=== PATIENT | female | born 1995 | race Caucasian/White ===

== ENCOUNTER 2016-06-18 14:45 | Emergency (ER) | payer OTHER ==
[2016-06-18] MEDS ORDERED: NS 0.9% 1000 ML* 1,000 ML BOLUS ONE (15:09)
[2016-06-18] MEDS ORDERED: Famotidine IV* 10 MG/ML 2 ML (20 mg) IV SLOW PU ONE (15:09)
--- NOTE | 2016-06-18 15:09 | UC ---
Abdominal Pain Female HPI - HPI Summary HPI Summary: 20 yo female with epigastric pain which started yesterday AM This was follow by 3 episodes of vomiting She later developed a temp to 102 Today no fever or nausea/vomiting Able to take liquids but it goes straight through her has had 4-6 episodes of water diarrhea epigastric pain continues no blood in vomit or stool no UTI symptoms has take care of pts with c. diff - History of Current Complaint Chief Complaint: UCAbdominalPain Stated Complaint: ABDOMINAL PAIN Time Seen by Provider: 06/18/16 15:00 Hx Obtained From: Patient Hx Last Menstrual Period: 06/06/16 Onset/Duration: Gradual Onset, Lasting Days Timing: Constant Severity Initially: Moderate Severity Currently: Moderate Pain Intensity: 4 Pain Scale Used: 0-10 Numeric Location: Epigastric Radiates: No Character: Cramping Aggravating Factor(s): Food Alleviating Factor(s): Nothing Associated Signs and Symptoms: Positive: Fever, Decreased Appetite, Nausea - non today, Vomiting - none today. Negative: Diaphoresis, Cough, Chest Pain, Dizzy, Back Pain, Constipation, Blood in Stool, Urinary Symptoms, Vaginal Bleeding, Vaginal Discharge Allergies/Adverse Reactions: Allergies Allergy/AdvReac Type Severity Reaction Status Date / Time Pineapple Allergy Severe Itching Verified 06/18/16 14:50 cats Allergy Severe Eyes Uncoded 06/18/16 14:50 Itchy/Swollen/Red/Watery Home Medications: Home Medications Albuterol HFA INHALER* [Ventolin HFA Inhaler*] 2 puff INH Q6H PRN 06/18/16 [ History Confirmed 06/18/16] Levonorgestrel (Iud) [Mirena IUD] 06/18/16 [History] PMH/Surg Hx/FS Hx/Imm Hx Previously Healthy: Yes - IBS Endocrine History Of: Denies: Diabetes, Thyroid Disease Cardiovascular History Of: Denies: Cardiac Disorders, Hypertension Respiratory History Of: Reports: Asthma - exercise-induced Denies: COPD GI/ History Of: Denies: Ulcer Psychological History Of: Reports: Anxiety - Surgical History Surgical History: Yes Surgery Procedure, Year, and Place: tonsils 02/20, adenoids in 04/19, wisdom teeth 02/21 - Family History Known Family History: Positive: Cardiac Disease, Hypertension - Social History Alcohol Use: None Substance Use Type: None Smoking Status (MU): Never Smoked Tobacco - Immunization History Most Recent Influenza Vaccination: 2016 Most Recent Tetanus Shot: UTD Most Recent Pneumonia Vaccination: N/A Review of Systems Constitutional: Fever - non today Skin: Negative Eyes: Negative ENT: Negative Respiratory: Negative Cardiovascular: Negative Gastrointestinal: Abdominal Pain, Vomiting - none today, Diarrhea Genitourinary: Negative Motor: Negative Neurovascular: Negative Musculoskeletal: Negative Neurological: Negative Psychological: Negative All Other Systems Reviewed And Are Negative: Yes Physical Exam Triage Information Reviewed: Yes Appearance: Well-Appearing, No Pain Distress, Well-Nourished Vital Signs: Initial Vital Signs Temp 97.7 F 06/18/16 14:53 Pulse 111 06/18/16 14:53 Resp 18 06/18/16 14:53 BP 131/88 06/18/16 14:53 Pulse Ox 99 06/18/16 14:53 Vital Signs Reviewed: Yes Eyes: Positive: Conjunctiva Clear ENT: Positive: Normal ENT inspection, Hearing grossly normal Dental Exam: Normal Neck: Positive: Supple, Nontender, No Lymphadenopathy Respiratory: Positive: Lungs clear, Normal breath sounds, No respiratory distress Cardiovascular: Positive: RRR, No Murmur, Pulses Normal Abdomen Description: Positive: Soft. Negative: Nontender - tender diffusely...worse epigastrium, Bruit, CVA Tenderness (L), Distended, Guarding, Hernia @, Hepatomegaly, McBurney's Point Tenderness, Peritoneal Signs, Pulsatile Mass, Splenomegaly Musculoskeletal: Positive: ROM Intact, No Edema Neurological: Positive: Alert Psychological Exam: Normal Skin Exam: Normal Re-Evaluation - Re-Evaluation First Eval Re-Evaluation Time: 16:42 Change: Improved - feels improved/decreased pain/no nausea/no diarrhea here declines analgesic Abd Pain Female Course/Dx - Differential Dx/Diagnosis Provider Diagnoses: gastroenteritis Discharge - Discharge Plan Condition: Improved Disposition: HOME Prescriptions: Ondansetron TAB* [Zofran 4 MG Tab*] 4 mg PO Q6H PRN #6 tab PRN Reason: Nausea Patient Education Materials: Gastroenteritis (ED) Referrals: Elva Srinivasan NP [Primary Care Provider] - 2 Days Additional Instructions: recheck here or go to the ER for new or worsening symptoms rest fluids tylenol zofran if needed for nausea
[2016-06-18 16:41] VITALS: BP 112/77
== END 2016-06-18 16:50 | disposition home or self-care (01) ==
LOC: UCEAST 14:45
DX: K52.9 Noninfective gastroenteritis and colitis, unspecified (principal); J45.990 Exercise induced bronchospasm
CPT/HCPCS: 81003; 87045; 87046; 87077; 87328; 87329; 87493; 87899; 99212; G0463

== ENCOUNTER 2016-06-19 15:22 | Emergency (ER) | payer OTHER ==
[2016-06-19 15:45] VITALS: BP 121/75
--- NOTE | 2016-06-19 18:08 | UC ---
Janet Red Michael, scribed for Aide Hernandez MD on 06/19/16 at 1628 . Abdominal Pain Female HPI - HPI Summary HPI Summary: 20 y/o female comes to [facility] after being dx with gastroenteritis on 06/18/16. She presented with n/v and a temperature of 102 which started 2 days ago. Currently , the pt reports to cramping abd pain and watery diarrhea with increasing frequency. The abd pain is rated a 7 out of 10 pain assessment. She also c/o dizziness, FORDE, nausea, and diaphoresis which started today. She took Ibuprofen today which alleviated her FORDE and not the abd pain. The pt is afebrile today. The pt dropped off a stool kit and c-diff is negative. Her LNMP was on 05/30/16. - History of Current Complaint Chief Complaint: UCGI Stated Complaint: ABD PAIN,DIZZY Hx Obtained From: Patient, Medical Records Hx Last Menstrual Period: 05/30/16 Onset/Duration: Gradual Onset, Still Present Timing: Intermittent Episodes Lasting: Severity Initially: Moderate Severity Currently: Moderate Pain Intensity: 7 Pain Scale Used: 0-10 Numeric Location: Diffuse Radiates: No Character: Cramping Aggravating Factor(s): Nothing Alleviating Factor(s): Nothing Associated Signs and Symptoms: Positive: Diaphoresis, Dizzy, Decreased Appetite , Nausea, Diarrhea, Other: - abd pain. Negative: Fever, Urinary Symptoms Allergies/Adverse Reactions: Allergies Allergy/AdvReac Type Severity Reaction Status Date / Time Pineapple Allergy Severe Itching Verified 06/19/16 17:13 cats Allergy Severe Eyes Uncoded 06/19/16 17:13 Itchy/Swollen/Red/Watery PMH/Surg Hx/FS Hx/Imm Hx Endocrine History Of: Denies: Diabetes, Thyroid Disease Cardiovascular History Of: Denies: Cardiac Disorders, Hypertension Respiratory History Of: Reports: Asthma - exercise-induced Denies: COPD GI/ History Of: Denies: Ulcer Psychological History Of: Reports: Anxiety - Surgical History Surgical History: Yes Surgery Procedure, Year, and Place: tonsils 02/20, adenoids in 04/19, wisdom teeth 02/21 - Family History Known Family History: Positive: Cardiac Disease, Hypertension - Social History Occupation: Student Lives: With Family Alcohol Use: None Substance Use Type: None Smoking Status (MU): Never Smoked Tobacco - Immunization History Most Recent Influenza Vaccination: 2016 Most Recent Tetanus Shot: UTD Most Recent Pneumonia Vaccination: N/A Review of Systems Constitutional: Fever - a few days ago, Other - diaphoresis ENT: Negative Respiratory: Negative Cardiovascular: Negative Gastrointestinal: Abdominal Pain, Diarrhea, Other - nausea Musculoskeletal: Myalgia Neurological: Headache, Other - dizziness All Other Systems Reviewed And Are Negative: Yes Physical Exam Triage Information Reviewed: Yes Appearance: Well-Nourished, Ill-Appearing, Pain Distress Vital Signs: Initial Vital Signs Temp 98.5 F 06/19/16 15:40 Pulse 104 06/19/16 15:40 Resp 16 06/19/16 15:40 BP 121/75 06/19/16 15:40 Pulse Ox 99 06/19/16 15:40 tachycardia noted Vital Signs Reviewed: Yes Eyes: Positive: Conjunctiva Clear ENT Exam: Normal Neck: Positive: Supple, Nontender, No Lymphadenopathy Respiratory: Positive: Lungs clear, Normal breath sounds, No respiratory distress Cardiovascular: Positive: No Murmur, Pulses Normal, Brisk Capillary Refill, Tachycardia Abdomen Description: Positive: No Organomegaly, Soft. Negative: Nontender - diffuse tenderness, CVA Tenderness (R), CVA Tenderness (L), Distended, Guarding , McBurney's Point Tenderness, Peritoneal Signs, Splenomegaly Bowel Sounds: Positive: Hyperactive Musculoskeletal: Positive: Strength Intact, ROM Intact Neurological Exam: Normal Psychological Exam: Normal Skin Exam: Normal Abd Pain Female Course/Dx - Course Course Of Treatment: Discussed pt care with Dr. Stephens at 1647. The pt will be tranferred to [facility] by private car for further evaluation, and she is accepted by Dr. Stephens. Pt continues to worsen, despite IV hydration yesterday, and has not eaten for 3 days. Needs higher level of care. - Differential Dx/Diagnosis Differential Diagnosis: Appendicitis, Bowel Obstruction, Diverticulitis, Hepatitis, Irritable Bowel Syndrome, Pancreatitis, Other - infectious colitis Provider Diagnoses: abdominal pain. diarrhea Discharge - Discharge Plan Condition: Stable Disposition: AGAINST MEDICAL ADVICE Referrals: Elva Srinivasan NP [Primary Care Provider] - The documentation as recorded by the Janet evangelista Michael accurately reflects the service I personally performed and the decisions made by , Aide Hernandez MD.
== END 2016-06-19 16:53 | disposition left against medical advice (07) ==
LOC: UCEAST 15:22
DX: R10.9 Unspecified abdominal pain (principal); R19.7 Diarrhea, unspecified; Z91.018 Allergy to other foods; Z91.09 Other allergy status, other than to drugs and biological substances
CPT/HCPCS: 99212; G0463

== ENCOUNTER 2016-06-19 17:11 | Emergency (ER) | payer OTHER ==
[2016-06-19] MEDS ORDERED: Ondansetron INJ* 2 MG/ML VIAL IV ONE ×2 (17:17→18:03)
[2016-06-19] MEDS ORDERED: Morphine INJ* 4 MG/ML 1 ML SYRINGE IV ONE ×2 (17:17→18:03)
[2016-06-19] MEDS ORDERED: NS 0.9% 1000 ML* 1,000 ML IV ONE ×3 (17:17→20:37)
[2016-06-19 18:24] LABS: Hematocrit 43 % (35-47); Hemoglobin 14.7 g/dl (12.0-16.0); Mean Corpuscular HGB Conc 34 g/dl (31-36); Mean Corpuscular Hemoglobin 28 pg (27-31); Mean Corpuscular Volume 83 fL (80-97); Mean Platelet Volume 9 um3 (7.4-10.4); Red Blood Count 5.21 10^6/ul (4.0-5.4); Red Cell Distribution Width 13 % (10.5-15); White Blood Count 6.8 10^3/ul (3.5-10.8)
[2016-06-19 18:34] LABS: Urine Bacteria 1+ (Absent); Urine Bilirubin Negative (Negative); Urine Glucose Negative (Negative); Urine Nitrite Negative (Negative)
[2016-06-19 18:39] LABS: ALT 47 U/L (7-52); Albumin 4.6 g/dL (3.2-5.2); Alkaline Phosphatase 77 U/L (34-104); BUN/Creatinine Ratio 7.2 (8-20); Blood Urea Nitrogen 5 mg/dL (6-24); C Reactive Protein 57.85 mg/L (< 5.00); CO2 Carbon Dioxide 25 mmol/L (22-32); Calcium 9.2 mg/dL (8.6-10.3); Chloride 105 mmol/L (101-111); EGFR African American 136.8 (>60); EGFR Non-African American 106.4 (>60); Globulin 3.3 g/dL (2-4); Glucose 92 mg/dL (70-100); Lipase < 10 U/L (11.0-82.0); Sodium 137 mmol/L (133-145); Total Protein 7.9 g/dL (6.4-8.9)
[2016-06-19 20:24] LABS: Magnesium 1.9 mg/dL (1.9-2.7)
[2016-06-19] MEDS ORDERED: Ondansetron ODT TAB* 4 MG PO ONE (20:39)
[2016-06-19] MEDS ORDERED: oxyCODONE/Acetamin 5/325 MG* TAB PO ONE (20:39)
[2016-06-19] MEDS ORDERED: Azithromycin TAB* 250 MG PO ONE (20:39)
[2016-06-19 21:15] VITALS: BP 102/58
--- NOTE | 2016-08-03 23:30 | ED ---
Neda, DoctorMiriam, scribed for Aide Hernandez MD on 06/19/16 at 1809 . GI/ HPI <AngeloHannah - Last Filed: 07/05/16 11:25> - HPI Summary HPI Summary: 20 year old female arrived to [facility] [place] [facility]/D and abdominal pain for the past two days. She woke up two days ago with stomach pain and was overcome with nausea; vomited twice. Pt has not vomited since but has had regular cramping in the middle of her abdomen and constant diarrhea. She reports a fever of 102 two days ago, and 99 yesterday. Additionally, she reports potential c. diff exposure. She does not smoke or drink and has a PMHx of generalized anxiety disorder, IBS, panic disorder, and exercise induced asthma. - History of Current Complaint Hx Obtained From: Patient Onset/Duration: Started Days Ago - 2 days ago, Still Present, Resolved - vomiting resolved Timing: Lasting Days Severity: Moderate Current Severity: Moderate Pain Intensity: 7 - on 0-10 Numerical Scale Location of Pain: Diffuse Associated Signs and Symptoms: Positive: Nausea, Vomiting, Diarrhea, Abdominal Pain Alleviating Factor(s): Spontaneous Resolution - vomiting resolved spontaneously <Aide Hernandez - Last Filed: 08/03/16 23:30> - History of Current Complaint Chief Complaint: EDNauseaVomitDiarrh Time Seen by Provider: 06/19/16 17:23 Stated Complaint: SENT FROM [facility]-ABD PAIN,DIARRHEA - Allergy/Home Medications Allergies/Adverse Reactions: Allergies Allergy/AdvReac Type Severity Reaction Status Date / Time Pineapple Allergy Severe Itching Verified 06/19/16 17:13 cats Allergy Severe Eyes Uncoded 06/19/16 17:13 Itchy/Swollen/Red/Watery PMH/Surg Hx/FS Hx/Imm Hx Endocrine/Hematology History: Denies: Hx Diabetes, Hx Thyroid Disease Cardiovascular History: Denies: Hx Hypertension Respiratory History: Reports: Hx Asthma - exercise-induced Denies: Hx Chronic Obstructive Pulmonary Disease (COPD) GI History: Denies: Hx Ulcer Psychiatric History: Reports: Hx Anxiety, Hx Panic Disorder - Surgical History Surgery Procedure, Year, and Place: tonsils 02/20, adenoids in 04/19, wisdom teeth 02/21 Infectious Disease History: No Infectious Disease History: Denies: Hx Clostridium Difficile, Hx Hepatitis, Hx Human Immunodeficiency Virus (HIV), Hx of Known/Suspected MRSA, Hx Shingles, Hx Tuberculosis, Hx Known/ Suspected VRE, Hx Known/Suspected VRSA, History Other Infectious Disease, Traveled Outside the [place] in Last 30 Days - Family History Known Family History: Positive: Cardiac Disease, Hypertension, Diabetes - Social History Occupation: Student Lives: With Family - with partner Alcohol Use: None Substance Use Type: Reports: None Smoking Status (MU): Never Smoked Tobacco <Aide Hernandez - Last Filed: 08/03/16 23:30> Review of Systems Negative: Fever - fever of 102 two days ago, now resolved Positive: Abdominal Pain, Vomiting, Diarrhea, Nausea All Other Systems Reviewed And Are Negative: Yes <Aide Hernandez - Last Filed: 08/03/16 23:30> Physical Exam Vital Signs On Initial Exam: Initial Vitals Temp Pulse Resp BP Pulse Ox 97.3 F 98 16 124/74 100 06/19/16 17:13 06/19/16 17:13 06/19/16 17:13 06/19/16 17:13 06/19/16 17:13 <Hannah Stephens - Last Filed: 07/05/16 11:25> Triage Information Reviewed: Yes Vital Signs On Initial Exam: Initial Vitals Temp Pulse Resp BP Pulse Ox 97.3 F 98 16 124/74 100 06/19/16 17:13 06/19/16 17:13 06/19/16 17:13 06/19/16 17:13 06/19/16 17:13 Vital Signs Reviewed: Yes Appearance: Positive: Well-Appearing, No Pain Distress Skin: Positive: Warm, Skin Color Reflects Adequate Perfusion, Dry Eyes: Positive: EOMI, MARCELA ENT: Positive: Pharynx normal, TMs normal Neck: Positive: Supple, Nontender Respiratory/Lung Sounds: Positive: Clear to Auscultation, Breath Sounds Present. Negative: Rales, Rhonchi, Wheezes Cardiovascular: Positive: RRR. Negative: Murmur, Rub Abdomen Description: Negative: Nontender - mid-abdominal tenderness Musculoskeletal: Positive: Normal. Negative: Edema Left, Edema Right Neurological: Positive: Sensory/Motor Intact, Alert, Oriented to Person Place, Time, CN Intact II-III Psychiatric: Positive: Normal, Affect/Mood Appropriate <Aide Hernandez - Last Filed: 08/03/16 23:30> Diagnostics - Vital Signs Vital Signs Temp Pulse Resp BP Pulse Ox 06/19/16 21:13 98.2 F 79 16 102/58 06/19/16 20:06 78 111/65 98 06/19/16 20:00 75 98 06/19/16 19:30 74 103/59 100 06/19/16 19:00 75 96/58 99 06/19/16 18:30 79 105/65 97 06/19/16 18:17 84 97 06/19/16 18:14 110/66 06/19/16 18:12 16 06/19/16 17:13 97.3 F 98 16 124/74 100 - Laboratory Lab Results: Lab Results 06/19/16 06/19/16 06/19/16 Range/Units 18:10 18:10 18:10 WBC 6.8 (3.5-10.8) 10^3/ul RBC 5.21 (4.0-5.4) 10^6/ul Hgb 14.7 (12.0-16.0) g/dl Hct 43 (35-47) % MCV 83 (80-97) fL MCH 28 (27-31) pg MCHC 34 (31-36) g/dl RDW 13 (10.5-15) % Plt Count 235 (150-450) 10^3/ul MPV 9 (7.4-10.4) um3 Neut % (Auto) 65.7 (38-83) % Lymph % (Auto) 23.0 L (25-47) % [place] % (Auto) 8.7 (1-9) % Eos % (Auto) 2.1 (0-6) % Baso % (Auto) 0.5 (0-2) % Absolute Neuts (auto) 4.5 (1.5-7.7) 10^3/ul Absolute Lymphs (auto) 1.6 (1.0-4.8) 10^3/ul Absolute Monos (auto) 0.6 (0-0.8) 10^3/ul Absolute Eos (auto) 0.1 (0-0.6) 10^3/ul Absolute Basos (auto) 0 (0-0.2) 10^3/ul Absolute Nucleated RBC 0.01 10^3/ul Nucleated RBC % 0.1 Sodium 137 (133-145) mmol/L Potassium TNP Chloride 105 (101-111) mmol/L Carbon Dioxide 25 (22-32) mmol/L Anion Gap TNP BUN 5 L (6-24) mg/dL Creatinine 0.69 (0.51-0.95) mg/dL Est GFR ( Amer) 136.8 (>60) Est GFR (Non-Af Amer) 106.4 (>60) BUN/Creatinine Ratio 7.2 L (8-20) Glucose 92 (70-100) mg/dL Calcium 9.2 (8.6-10.3) mg/dL Magnesium (1.9-2.7) mg/dL Total Bilirubin 0.60 (0.2-1.0) mg/dL AST TNP ALT 47 (7-52) U/L Alkaline Phosphatase 77 (34-104) U/L C-Reactive Protein 57.85 H (< 5.00) mg/L Total Protein 7.9 (6.4-8.9) g/dL Albumin 4.6 (3.2-5.2) g/dL Globulin 3.3 (2-4) g/dL Albumin/Globulin Ratio 1.4 (1-3) Lipase < 10 L (11.0-82.0) U/L Urine Color Yellow Urine Appearance Clear Urine pH 6.0 (5-9) Ur Specific [place] 1.005 L (1.010-1.030) Urine Protein Negative (Negative) Urine Ketones Negative (Negative) Urine Blood 1+ H (Negative) Urine Nitrate Negative (Negative) Urine Bilirubin Negative (Negative) Urine Urobilinogen Negative (Negative) Ur Leukocyte Esterase Negative (Negative) Urine WBC (Auto) Trace(0-5/hpf) (Absent) Urine RBC (Auto) Trace(0-2/hpf) (Absent) Ur Squamous Epith Cells Present H (Absent) Urine Bacteria 1+ H (Absent) Urine Glucose Negative (Negative) 06/19/16 Range/Units 19:55 WBC (3.5-10.8) 10^3/ul RBC (4.0-5.4) 10^6/ul Hgb (12.0-16.0) g/dl Hct (35-47) % MCV (80-97) fL MCH (27-31) pg MCHC (31-36) g/dl RDW (10.5-15) % Plt Count (150-450) 10^3/ul MPV (7.4-10.4) um3 Neut % (Auto) (38-83) % Lymph % (Auto) (25-47) % [place] % (Auto) (1-9) % Eos % (Auto) (0-6) % Baso % (Auto) (0-2) % Absolute Neuts (auto) (1.5-7.7) 10^3/ul Absolute Lymphs (auto) (1.0-4.8) 10^3/ul Absolute Monos (auto) (0-0.8) 10^3/ul Absolute Eos (auto) (0-0.6) 10^3/ul Absolute Basos (auto) (0-0.2) 10^3/ul Absolute Nucleated RBC 10^3/ul Nucleated RBC % Sodium (133-145) mmol/L Potassium 3.5 Chloride (101-111) mmol/L Carbon Dioxide (22-32) mmol/L Anion Gap BUN (6-24) mg/dL Creatinine (0.51-0.95) mg/dL Est GFR ( Amer) (>60) Est GFR (Non-Af Amer) (>60) BUN/Creatinine Ratio (8-20) Glucose (70-100) mg/dL Calcium (8.6-10.3) mg/dL Magnesium 1.9 (1.9-2.7) mg/dL Total Bilirubin (0.2-1.0) mg/dL AST 35 ALT (7-52) U/L Alkaline Phosphatase (34-104) U/L C-Reactive Protein (< 5.00) mg/L Total Protein (6.4-8.9) g/dL Albumin (3.2-5.2) g/dL Globulin (2-4) g/dL Albumin/Globulin Ratio (1-3) Lipase (11.0-82.0) U/L Urine Color Urine Appearance Urine pH (5-9) Ur Specific [place] (1.010-1.030) Urine Protein (Negative) Urine Ketones (Negative) Urine Blood (Negative) Urine Nitrate (Negative) Urine Bilirubin (Negative) Urine Urobilinogen (Negative) Ur Leukocyte Esterase (Negative) Urine WBC (Auto) (Absent) Urine RBC (Auto) (Absent) Ur Squamous Epith Cells (Absent) Urine Bacteria (Absent) Urine Glucose (Negative) Result Diagrams: 06/19/16 18:10 06/19/16 19:55 Lab Statement: Any lab studies that have been ordered have been reviewed, and results considered in the medical decision making process. <Hannah Stephens - Last Filed: 07/05/16 11:25> - Vital Signs Vital Signs Temp Pulse Resp BP Pulse Ox 06/19/16 17:13 97.3 F 98 16 124/74 100 - Laboratory Result Diagrams: 06/19/16 18:10 06/19/16 19:55 Lab Statement: Any lab studies that have been ordered have been reviewed, and results considered in the medical decision making process. <Aide Hernandez - Last Filed: 08/03/16 23:30> GIGU Course/Dx - Course Course Of Treatment: 21 yo male with diarrhea and fever started on empiric abx labs look good <Hannah Stephens - Last Filed: 07/05/16 11:25> <Aide Hernandez - Last Filed: 08/03/16 23:30> - Diagnoses Provider Diagnoses: Diarrhea Discharge <Hannah Stephens - Last Filed: 07/05/16 11:25> <Aide Hernandez - Last Filed: 08/03/16 23:30> - Discharge Plan Condition: Stable Disposition: HOME Prescriptions: Azithromycin [Azithromycin 500 MG TAB] 500 mg PO DAILY #2 tab Ondansetron TAB* [Zofran 4 MG Tab*] 4 mg PO Q6H PRN #10 tab PRN Reason: Nausea oxyCODONE/Acetamin 5/325 MG* [Percocet 5/325 TAB*] 1 tab PO Q8H PRN #7 tab MDD 3 PRN Reason: Pain Patient Education Materials: Acute Diarrhea (ED) Referrals: Elva Srinivasan NP [Primary Care Provider] - The documentation as recorded by the Doctor evangelista Tahera accurately reflects the service I personally performed and the decisions made by David olson Barbara J, MD.
== END 2016-06-19 21:13 | disposition home or self-care (01) ==
LOC: ED 17:11
DX: R19.7 Diarrhea, unspecified (principal); R10.9 Unspecified abdominal pain; R11.2 Nausea with vomiting, unspecified
CPT/HCPCS: 36415; 80053; 81003; 81015; 83690; 83735; 85025; 86140; 87086; 96374; 96375; 99283; A9270-GY; J2270; J2405

== ENCOUNTER 2018-05-09 12:53 | Emergency (ER) | payer OTHER ==
--- OUTSIDE RECORDS SUMMARY | 2018-05-09 13:00 | XMS REPORT | Continuity of Care Document ---
:1995 External Reference #:[id number] Author Name Nenita Potter Care Team Providers Name Role Phone Sherita Reeves MD Primary Care Physician Unavailable Payers Date Identification Numbers Payment Provider Subscriber Effective: 2013 Policy Number: [id number] [employer] Matias Lockett Group Number: [id number] [address] PayID: [id number] [place] [address] Advance Directives Description No Information Available Problems Date Description Provider Status Onset: 07/12/2013 Mixed hyperlipidemia Sarahy Stringer M.D. Active Onset: 07/12/2013 Obesity Sarahy Stringer M.D. Active Onset: 07/12/2013 Vitamin D deficiency Sarahy Stringer M.D. Active Onset: 07/12/2013 Chondromalacia of patella Chance Oconnor M.D. Active Onset: 07/12/2013 Patellar tendonitis Chance Oconnor M.D. Active Onset: 07/12/2013 Sensorineural hearing loss Anton Pelayo M.D. Active Onset: 07/12/2013 Chronic tonsillitis Anton Pelayo M.D. Active Onset: 07/20/2017 Obstructive sleep apnea syndrome Shelly Grayson DNP, RN, Active [employer] Onset: 07/20/2017 Hypersomnia Shelly Grayson DNP, RN, Active [employer] Onset: 07/20/2017 Body mass index 30+ - obesity Shelly Grayson DNP RN, Active [employer] Family History Date Family Member(s) Observation Comments General Cancer, Pancreatic General Cancer, Breast General Diabetes, Non Insulin Dependent General Thyroid Disease General Hypertension Father Hypertension Mother Chronic Hepatitis B Siblings 1 Sister: cardiac history showed one of her ventricles too small-murmur was present but no longer Social History Type Date Description Comments Sex Unknown Marital Status Significant Other Lives With Fiance Lives With Mother And Father Smoke-Free Home is smoke-free Pets 2 dogs Pets 2 cats Pets Cow Pets Goat Pets chicken 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[employer] [place] Tobacco Use Start: Unknown Never Smoked Cigarettes Tobacco Use Start: Unknown Never Smoked A Pipe Smokeless Tobacco Never Used Smokeless Tobacco ETOH Use Denies alcohol use Tobacco Use Start: Unknown Patient has never smoked Recreational Drug Use Denies Drug Use Smoking Status Reviewed: 04/18/18 Patient has never smoked Exercise Type/Frequency Exercises sporadically Allergies, Adverse Reactions, Alerts Date Description Reaction Status Severity Comments 02/10/2017 NKDA Active 02/10/2017 Cat Dander Active 02/10/2017 Pineapple Active 08/07/2009 NKDA Inactive Medications Medication Date Status Form Strength Qnty SIG Indications Ordering Provider Zoloft / Active 150mg qd Unknown 0000 Zyrtec / Active 10mg qd Unknown 0000 Multivitamins / Active 1 qd Unknown 0000 Proair HFA / Active Aerosol 108(90Base 1units 2 puffs by Unknown 0000 ) mcg/Act mouth every 4 hours as needed Fish Oil / Active Capsules 1200mg 1 by mouth Unknown Burp-Less 0000 every day Vitamin D-3 / Active Tablets 5000Unit 8tabs 1 by mouth Unknown 0000 every day Mirena (52 MG) / Active IUD 20mcg/24HR Unknown 0000 Lorazepam / Active Tablets 1mg prn Unknown 0000 Nguyen Colon / Active Capsules 1 by mouth Unknown Health 0000 every day Lortab 02/22/ Hx Elixir 7.5-500mg/ 450ml 1 Anton 2010 - 15ML tablespoon Pierce, 10/17/ (15 ml) by Ann 2011 mouth every 4-6 hours as needed for pain Clindamycin HCL 01/25/ Hx Capsules 300mg 63caps 1 tab po Anton 2010 - tid for 21 Pierce, 10/17/ days M.DLima 2011 Augmentin 01/04/ Hx Tablets 875-125mg 20tabs 1 tab by Anton 2010 - mouth twice Pierce, 12/13/ a day for M.D. 2010 10 days Medrol Dosepak 01/04/ Hx Tablets 4mg 1pack take as Anton 2010 - directed Pierce, 02/22/ M.D. 2010 Valium 00/ Hx 5mg prn Unknown 0000 - 2016 Norgestimate/Et 00/ Hx Tablets 0.25-35mg- 30tabs 1 by mouth Unknown hinyl Estradiol 0000 - mcg every day 2016 Immunizations Description No Information Available Vital Signs Date Vital Result Comment 04/18/2018 9:05am Height 63.5 inches 5'3.50" Weight 187.25 lb Heart Rate 72 /min BP Systolic Sitting 110 mmHg Lue regular cuff BP Diastolic Sitting 74 mmHg Lue regular cuff Respiratory Rate 12 /min O2 % BldC Oximetry 98 % BMI (Body Mass Index) 32.6 kg/m2 10/16/2017 9:42am Height 63.5 inches 5'3.50" Weight 188.00 lb Heart Rate 72 /min BP Systolic Sitting 110 mmHg BP Diastolic Sitting 84 mmHg Respiratory Rate 14 /min O2 % BldC Oximetry 98 % BMI (Body Mass Index) 32.8 kg/m2 07/20/2017 9:50am Height 63.5 inches 5'3.50" Weight 190.00 lb Heart Rate 90 /min BP Systolic Sitting 134 mmHg Rue reg cuff BP Diastolic Sitting 90 mmHg Rue reg cuff Respiratory Rate 14 /min O2 % BldC Oximetry 98 % On Ra BMI (Body Mass Index) 33.1 kg/m2 06/15/2017 7:58am Height 63.5 inches 5'3.50" Weight 195.00 lb Heart Rate 76 /min BP Systolic Sitting 122 mmHg BP Diastolic Sitting 72 mmHg Respiratory Rate 14 /min O2 % BldC Oximetry 98 % BMI (Body Mass Index) 34.0 kg/m2 Neck Circumference in inches 13.5 05/15/2017 11:37am Height 63.5 inches 5'3.50" Weight 194.75 lb w/shoes Heart Rate 80 /min BP Systolic Sitting 112 mmHg LA lg cuff BP Diastolic Sitting 76 mmHg LA lg cuff BMI (Body Mass Index) 34.0 kg/m2 Ejection Fraction 55% Stress Echo 03/21/17 02/10/2017 1:11pm Height 63.5 inches 5'3.50" Weight 196.75 lb with shoes Heart Rate 90 /min BP Systolic Sitting 120 mmHg LA reg cuff BP Diastolic Sitting 88 mmHg LA reg cuff BMI (Body Mass Index) 34.3 kg/m2 05/28/2013 8:59am Height 63.5 inches 5'3.50" Weight 180.00 lb Heart Rate 80 /min BP Systolic Sitting 118 mmHg BP Diastolic Sitting 70 mmHg Body Temperature 98.4 F BMI (Body Mass Index) 31.4 kg/m2 12/08/2011 1:43pm Height 63 inches 5'3" Weight 180.00 lb Heart Rate 84 /min BP Systolic 125 mmHg BP Diastolic 80 mmHg BMI (Body Mass Index) 31.9 kg/m2 Blood Pressure Percentile 92 % Height Percentile 31 % Weight Percentile 95th 02/22/2011 2:31pm Height 62.24 inches 5'2.24" Weight 177.00 lb Heart Rate 80 /min BP Systolic Sitting 122 mmHg BP Diastolic Sitting 84 mmHg BMI (Body Mass Index) 32.1 kg/m2 Blood Pressure Percentile 0 % Height Percentile 22 % Weight Percentile 95th 01/04/2011 2:29pm Body Temperature 98.0 F Blood Pressure Percentile 0 % 08/07/2009 9:51am Heart Rate 70 /min BP Systolic Sitting 120 mmHg BP Diastolic Sitting 80 mmHg Blood Pressure Percentile 0 % Results Test Date Facility Test Result H/L Range Note Urine Vma 24HR 05/06/2017 [facility] Urine Vma, 4.1 mg/24h < 8.[address] [place] [address] [phone] Urine Collection Duration 24 h Urine Total Volume 1800 mL 2 Urine Metanephrines 05/06/2017 [facility] Urine Metanephrine 90 mcg/24h [address] [place] [address] [phone] Urine Normetanephrine 311 mcg/24h 4 Urine Total Metanephrines 401 mcg/24h 5 Urine Collection Duration 24 h Urine Volume 1800 mL 6 Lipid Panel - 05/04/2017 [facility] Creatine 188 U/L N 10-[address] Kinase(CK) [place] [address] [phone] Comp Metabolic 05/04/2017 [facility] Sodium 138 N 133-[address] mmol/[place] [address] [phone] Potassium 4.0 mmol/L N 3.5-5.0 Chloride 106 mmol/L N 101-111 Co2 Carbon Dioxide 24 mmol/L N 22-32 Anion Gap 8 mmol/L N 2-11 Glucose 89 mg/dL N 70-100 Blood Urea Nitrogen 10 mg/dL N 6-24 Creatinine 0.60 mg/dL N 0.51-0.95 BUN/Creatinine Ratio 16.7 N 8-20 Calcium 9.1 mg/dL N 8.6-10.3 Total Protein 6.7 g/dL N 6.4-8.9 Albumin 4.3 g/dL N 3.2-5.2 Globulin 2.4 g/dL N 2-4 Albumin/Globulin Ratio 1.8 N 1-3 Total Bilirubin 0.40 mg/dL N 0.2-1.0 Alkaline Phosphatase 63 U/L N 34-104 Alt 24 U/L N 7-52 Ast 24 U/L N 13-39 Egfr Non- 123.9 >60 Egfr 159.3 >60 7 Lipid Profile 05/04/2017 [facility] Triglycerides 78 mg/dL 8 (Trig/Chol/HDL) [address] [place] [address] [phone] Cholesterol 144 mg/dL 9 HDL Cholesterol 39.0 mg/dL 10 LDL Cholesterol 89 mg/dL 11 Laboratory test 05/04/2017 [facility] Magnesium 2.0 mg/dL N 1.9-2.[address] [place] [address] [phone] Cortisol 9.11 g/dL 12 Vitamin B12 435 pg/mL N 180-914 13 Folic Acid (Folate) > 20.00 ng/mL >3.99 Vitamin D Total 25(Oh) 26.9 ng/mL N 20-50 Vitamin D, 1,25 Dihydroxy 59 pg/mL 18-78 14 1 COLLECTED 05/05/17 0900-05/06/17 0915 2 ADDITIONAL INFORMATION Liquid Chromatography-Tandem Mass Spectrometry (LC-MS/MS). Values obtained from different assay methods or kits may be different and cannot be used interchangeably. The results cannot be interpreted as absolute evidence for the presence or absence of malignant disease. This test was developed and its performance characteristics determined by [facility] in a manner consistent with CLIA requirements. This test has not been cleared or approved by the U.S. Food and Drug Administration. Test Performed by: [facility] - [facility] [address] [place] [address] 3 REFERENCE VALUE 30-180 (Normotensive) <400 (Hypertensive) 4 REFERENCE VALUE 103-390 (Normotensive) <900 (Hypertensive) 5 REFERENCE VALUE 145-510 (Normotensive) <1300 (Hypertensive) 6 ADDITIONAL INFORMATION This test was developed and its performance characteristics determined by [facility] in a manner consistent with CLIA requirements. This test has not been cleared or approved by the U.S. Food and Drug Administration. Test Performed by: [facility] - [facility] [address] [place] [address] 7 Because ethnic data is not always readily available, this report includes an eGFR for both -Americans and non- Americans. The National Kidney Disease Education Program (NKDEP) does not endorse the use of the MDRD equation for patients that are not between the ages of 18 and 70, are , have extremes of body size, muscle mass, or nutritional status, or are non- or non-. According to the National Kidney Foundation, irrespective of diagnosis, the stage of the disease is based on the level of kidney function: Stage Description GFR(mL/min/1.73 m(2)) 1 Kidney damage with normal or decreased GFR 90 2 Kidney damage with mild decrease in GFR 60-89 3 Moderate decrease in GFR 30-59 4 Severe decrease in GFR 15-29 5 Kidney failure <15 (or dialysis) 8 Desirable: <150 Borderline High: 150-199 High: 200-499 Very High: >500 9 Desirable: <200 Borderline High: 200-239 High: >239 10 Low: <40 Desirable: 40-60 High: >60 11 Desirable: <100 Near Optimal: 100-129 Borderline High: 130-159 High: 160-189 Very High: >189 12 AM 8.7-22.4 PM <10 13 Normal Range 180 to 914 Indeterminate Range 145 to 180 Deficient Range <145 14 ADDITIONAL INFORMATION This test was developed and its performance characteristics determined by [facility] in a manner consistent with CLIA requirements. This test has not been cleared or approved by the U.S. Food and Drug Administration. Test Performed by: [facility] [address] [place] [address] Procedures Date Code Description Status 06/20/2017 85523 Sleep Study Unattended,HRT Rate,Oxygen Sat,Resp Completed Effort/Airflow 03/21/2017 32133 ECHO Stress Test Incl Perf Contiuous ekg Monitoring W/Phys Completed Superv 03/15/2017 38827 ECHO Transthoracic, Real-Time 2D With Doppler And Color Completed Flow 03/15/2017 57461 ECHO Transthoracic, Real-Time 2D With Doppler And Color Completed Flow 02/21/2017 34886 Holter Monitor Review (24 hr)dr review & interp only Completed 02/20/2017 42913 ECG Monitor/Recording W/Visual Superimposition Scanning Completed 02/10/2017 45493 EKG Tracing & Interpretation Completed 03/01/2011 90053 Tonsillectomy Age 12 And Over Completed Encounters Type Date Location Provider Dx Diagnosis Office Visit 10/16/2017 [facility] Shelly Grayson G47.33 Obstructive sleep 9:45a [facility], [facility]NA[facility] [employer] apnea (adult) 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) Z68.32 Body mass index (BMI) 32.0-32.9, adult Office Visit 07/20/2017 [facility] And Shelly G47.33 Obstructive sleep 10:00a [facility] JANET Grayson, RN, apnea (adult) [facility] MANAGER [employer]LL[employer] (pediatric) G47.14 Hypersomnia due to medical condition Z68.33 Body mass index (BMI) 33.0-33.9, adult Office Visit 06/15/2017 8:30a [facility]z Elena Reeves, R06.83 [facility] E66.09 Other obesity due to excess calories R53.83 Other fatigue Z68.34 Body mass index (BMI) 34.0-34.9, adult Office Visit 05/15/2017 11:40a [facility] Carol SLima R00.2 Palpitations Ann Reinoso R00.0 Tachycardia, unspecified E55.9 Vitamin D deficiency, unspecified E78.2 Mixed hyperlipidemia Office Visit 02/10/2017 [place] Carol SLima E78.2 Mixed 1:40p Cardiology Ann Reinoso hyperlipidemia E66.9 Obesity, unspecified E55.9 Vitamin D deficiency, unspecified R00.0 Tachycardia, unspecified Office Visit 05/28/2013 9:00a [facility] Internal Sarahy Stringer, V70.0 Examination Medicine - M.DLima [facility] Routine AT [facility] Care Facility 272.2 Hyperlipidemia Mixed 278.00 Obesity Unspec 268.9 Vitamin D Deficiency Unspec Office Visit 12/08/2011 1:45p Orthopedic Chance Oconnor, 717.7 Chondromalacia Of Services Of Ann Patella C.M.A. 726.64 Tendinitis Patellar Office Visit 10/18/2011 1:00p [facility] Anton 389.10 Hearing Loss C.M.A. AT Ann Pelayo Unspec Office Visit 01/25/2011 3:00p [facility] 474.00 Tonsillitis Chronic C.M.A. AT Ann Pelayo Office Visit 01/04/2011 2:15p [facility] 463 Tonsillitis Acute C.M.A. AT Ann Pelayo Office Visit 10/28/2009 9:00a [facility] 389.10 Hearing Loss C.M.A. AT Negin Abdi M.D. Unspec Office Visit 08/07/2009 10:00a [facility] 382.9 Otitis Media Unspec C.M.A. AT Cyril Abdi M.D. 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 Cleaning Wipe off mask daily (baby wipe-no scent, or warm water) Clean mask, tubing, filter, and water chamber weekly in mild no scent dish soap and water. Hang to dry. If you have any sleepiness while driving you MUST avoid operating a vehicle or machinery. If you have difficulty with your equipment, or need to replace your mask or hoses, please contact your homecare agency. A weight change of 20 pounds or more may have an effect onyour equipment ; if you are experiencing problems please call for an appointment. If you have any further questions, please call the [facility] at [phone].Z77.14 Hypersomnia due to medical conditionRecommendations:Continue CPAP see assessment #1Z68.32 Body mass index (BMI) 32.0-32.9, adultRecommendations: Continue with weight loss efforts There are several weight loss Apps for your smart phone.
[2018-05-09 13:06] VITALS: BP 131/81
--- NOTE | 2018-05-09 14:34 | UC ---
Abdominal Pain Female HPI - HPI Summary HPI Summary: 1 WEEK OF RIGHT FLANK PAIN. YESTERDAY SX WORSENED - NAUSEA. APPETITE DOWN. PAIN IS NOW ALSO IN EPIGASTRIC AREA. NO FEVER. - History of Current Complaint Chief Complaint: UCAbdominalPain Stated Complaint: R SIDED FLANK PAIN Time Seen by Provider: 05/09/18 13:35 Hx Obtained From: Patient Hx Last Menstrual Period: mirena iud in place - 03/28/18 Onset/Duration: Gradual Onset, Lasting Days, Still Present Timing: Constant Severity Initially: Mild Severity Currently: Moderate Pain Intensity: 5 Pain Scale Used: 0-10 Numeric Location: Discrete At: RUQ, Epigastric Radiates: No Character: Colicy Aggravating Factor(s): Food Alleviating Factor(s): Nothing Associated Signs and Symptoms: Positive: Decreased Appetite, Nausea. Negative: Fever, Back Pain, Constipation, Urinary Symptoms Allergies/Adverse Reactions: Allergies Allergy/AdvReac Type Severity Reaction Status Date / Time pineapple Allergy Severe Itching Verified 05/09/18 13:06 cats Allergy Severe Eyes Uncoded 06/19/16 17:13 Itchy/Swollen/Red/Watery Home Medications: Home Medications LORazepam [Lorazepam] 0.5 mg PO DAILY PRN 05/09/18 [History Confirmed 05/09/18] l Gasseri/B Bifidum/B Longum [c8apps Health Capsule] 1 tab PO DAILY [History Confirmed 05/09/18] PMH/Surg Hx/FS Hx/Imm Hx - Additional Past Medical History Additional PMH: GALLSTONES Respiratory History: Asthma Psychological History: Anxiety - Surgical History Surgical History: Yes Surgery Procedure, Year, and Place: tonsils 02/20, adenoids in 04/19, wisdom teeth 02/21 - Family History Known Family History: Positive: Cardiac Disease, Hypertension, Diabetes - Social History Alcohol Use: None Substance Use Type: None Smoking Status (MU): Never Smoked Tobacco - Immunization History Most Recent Influenza Vaccination: 2016 Most Recent Tetanus Shot: UTD Most Recent Pneumonia Vaccination: N/A Review of Systems All Other Systems Reviewed And Are Negative: Yes Constitutional: Positive: Negative Respiratory: Positive: Negative Cardiovascular: Positive: Negative Gastrointestinal: Positive: Abdominal Pain, Nausea Genitourinary: Positive: Negative Physical Exam Triage Information Reviewed: Yes Appearance: Well-Appearing, No Pain Distress, Well-Nourished Vital Signs: Initial Vital Signs Temp 98.6 F 05/09/18 13:01 Pulse 100 05/09/18 13:01 Resp 18 05/09/18 13:01 BP 131/81 05/09/18 13:01 Pulse Ox 100 05/09/18 13:01 Vital Signs Reviewed: Yes Eyes: Positive: Conjunctiva Clear ENT: Positive: Hearing grossly normal Neck: Positive: Supple Respiratory Exam: Normal Cardiovascular: Positive: Tachycardia Abdomen Description: Positive: Soft, Other: - TTP RUQ, EPIGASTRIC REGIONS. NO REBOUND OR RIGIDITY. EQUIVOCAL TORRE'S. Negative: CVA Tenderness (R), CVA Tenderness (L), Distended, Guarding Bowel Sounds: Positive: Present Musculoskeletal: Positive: No Edema Neurological: Positive: Alert Psychological: Positive: Age Appropriate Behavior Skin: Negative: Rashes Diagnostics - Radiology GB US Radiology Interpretation Completed By: Radiologist Summary of Radiographic Findings: CHOLELITHIASIS WITHOUT SONOGRAPHIC FINDINGS CONSISTENT WITH ACUTE INFLAMMATORY CHANGE OR PATHOLOGIC BILIARY OBSTRUCTION. AN 8 MM STONE AT THE GALLBLADDER NECK APPEARS TO BE IMMOBILE WHEN THE PATIENT IS IMAGED IN DIFFERENT POSITIONS. PANCREAS APPEARS NORMAL. Abd Pain Female Course/Dx - Differential Dx/Diagnosis Provider Diagnosis: Biliary colic, Gallbladder calculus Discharge - Sign-Out/Discharge Documenting (check all that apply): Patient Departure All imaging exams completed and their final reports reviewed: Yes - Discharge Plan Condition: Stable Disposition: HOME Prescriptions: Ondansetron ODT TAB* [Zofran Odt TAB*] 4 mg PO Q6H PRN #20 tab.odt PRN Reason: Nausea/Vomiting Patient Education Materials: Biliary Colic (ED), Gallstones (ED) Forms: *Work Release Referrals: [facility] [Provider Group] - 2 Days Sherita Reeves MD [Primary Care Provider] - If Needed Additional Instructions: ULTRASOUND SHOWS: CHOLELITHIASIS WITHOUT SONOGRAPHIC FINDINGS CONSISTENT WITH ACUTE INFLAMMATORY CHANGE OR PATHOLOGIC BILIARY OBSTRUCTION. AN 8 MM STONE AT THE GALLBLADDER NECK APPEARS TO BE IMMOBILE WHEN THE PATIENT IS IMAGED IN DIFFERENT POSITIONS. PANCREAS APPEARS NORMAL. STAY HYDRATED, CLEAR LIQUID DIET. AVOID SOLID FOOD WHILE SYMPTOMATIC. CBC, CMP, AMYLASE AND LIPASE DRAWN TODAY. WE WILL CALL YOU WITH ANY ABNORMAL RESULTS. CALL SURGERY FOR A FOLLOW-UP APPT. GO TO THE ER WITHOUT FAIL IF YOU DEVELOP WORSENING PAIN, FEVER, NAUSEA OR ANY OTHER CONCERNING SYMPTOMS. GENERAL SURGERY IN [place]: [facility]: [phone] - Billing Disposition and Condition Condition: STABLE Disposition: Home
[2018-05-09 19:23] LABS: ABS Basophils 0 10^3/ul (0-0.2); ABS Eosinophils 0.1 10^3/ul (0-0.6); ABS Lymphocytes 1.6 10^3/ul (1.0-4.8); ABS Monocytes 0.5 10^3/ul (0-0.8); ABS Nucleated RBC 0 10^3/ul; Eosinophil % 1.7 %; Hematocrit 44 % (35-47); Lymphocyte % 31.1 %; Mean Corpuscular HGB Conc 34 g/dl (31-36); Mean Corpuscular Hemoglobin 29 pg (27-31); Mean Corpuscular Volume 85 fL (80-97); Mean Platelet Volume 9.5 fL (7.4-10.4); Nucleated Red Blood Cells % 0.2; Platelet Count 250 10^3/ul (150-450); Red Blood Count 5.17 10^6/ul (4.00-5.40); Red Cell Distribution Width 13 % (10.5-15); White Blood Count 5.2 10^3/ul (3.5-10.8)
[2018-05-10 08:33] LABS: Albumin 4.8 g/dL (3.2-5.2); Calcium 9.7 mg/dL (8.6-10.3); Total Bilirubin 0.4 mg/dL (0.2-1.0)
[2018-05-10 08:39] LABS: EGFR African American 148.6 (>60); EGFR Non-African American 122.8 (>60); Globulin 2.4 g/dL (2-4); Total Protein 7.2 g/dL (6.4-8.9)
--- NOTE | 2018-05-10 08:55 | UC ---
- Progress Note Progress Note: CBC with dif reviewed No change jama 05/10/18 Course/Dx - Diagnoses Provider Diagnoses: Biliary colic, Gallbladder calculus Discharge - Sign-Out/Discharge Documenting (check all that apply): Post-Discharge Follow Up All imaging exams completed and their final reports reviewed: No Studies - Discharge Plan Condition: Stable Disposition: HOME Prescriptions: Ondansetron ODT TAB* [Zofran Odt TAB*] 4 mg PO Q6H PRN #20 tab.odt PRN Reason: Nausea/Vomiting Patient Education Materials: Biliary Colic (ED), Gallstones (ED) Forms: *Work Release Referrals: [facility] [Provider Group] - 2 Days Sherita Reeves MD [Primary Care Provider] - If Needed Additional Instructions: ULTRASOUND SHOWS: CHOLELITHIASIS WITHOUT SONOGRAPHIC FINDINGS CONSISTENT WITH ACUTE INFLAMMATORY CHANGE OR PATHOLOGIC BILIARY OBSTRUCTION. AN 8 MM STONE AT THE GALLBLADDER NECK APPEARS TO BE IMMOBILE WHEN THE PATIENT IS IMAGED IN DIFFERENT POSITIONS. PANCREAS APPEARS NORMAL. STAY HYDRATED, CLEAR LIQUID DIET. AVOID SOLID FOOD WHILE SYMPTOMATIC. CBC, CMP, AMYLASE AND LIPASE DRAWN TODAY. WE WILL CALL YOU WITH ANY ABNORMAL RESULTS. CALL SURGERY FOR A FOLLOW-UP APPT. GO TO THE ER WITHOUT FAIL IF YOU DEVELOP WORSENING PAIN, FEVER, NAUSEA OR ANY OTHER CONCERNING SYMPTOMS. GENERAL SURGERY IN [place]: [facility]: [phone] - Billing Disposition and Condition Condition: STABLE Disposition: Home
== END 2018-05-09 14:45 | disposition home or self-care (01) ==
LOC: UCEAST 12:53
DX: K80.70 Calculus of gallbladder and bile duct without cholecystitis without obstruction (principal); F41.9 Anxiety disorder, unspecified; J45.909 Unspecified asthma, uncomplicated; Z91.018 Allergy to other foods; Z91.09 Other allergy status, other than to drugs and biological substances; Z79.899 Other long term (current) drug therapy
CPT/HCPCS: 36415; 76705; 80053; 81003; 82150; 83690; 84702; 85025; 99212; G0463

== ENCOUNTER 2018-07-09 07:56 | Day surgery (SDC) | payer OTHER ==
[~2018-07-09 07:56] MED LIST: Acetaminophen TAB* 325 MG ONE; Acetaminophen TAB* 325 MG PO ONE; Buffered Lidocaine 1% SYRIN* 1 ML/SYRINGE INTRADERM ONE; Gabapentin CAP(*) 300 MG ONE; Gabapentin CAP(*) 300 MG PO ONE; Lactated Ringers 1000 ML Bag* 1,000 ML IV SCH; ceFAZolin 2 GM PREMIX in ORs 2 GM/50 ML BAG IVPB ONE
[2018-07-09] MEDS ORDERED: fentaNYL* 50 MCG/ML 2 ML VIAL (100 MCG VIAL) ONE (09:19)
[2018-07-09] MEDS ORDERED: Midazolam* 1 MG/ML 2 ML VIAL (2 MG) ONE (09:19)
[2018-07-09] MEDS ORDERED: Famotidine IV* 10 MG/ML 2 ML (20 mg) ONE (10:02)
[2018-07-09] MEDS ORDERED: Scopolamine 1.5 mg* PATCH ONE (10:02)
[2018-07-09] MEDS ORDERED: Bupivacaine 0.25% W/EPI* 10 ML SDV ONE (10:06)
[2018-07-09] MEDS ORDERED: Ketorolac INJ* 30 MG/ML 1 ML VIAL ONE (10:27)
[2018-07-09] MEDS ORDERED: Dexamethasone IV* 4 MG/ML 1 ML (4 MG) ONE (10:27)
[2018-07-09] MEDS ORDERED: Ondansetron INJ* 2 MG/ML VIAL ONE (10:27)
[2018-07-09] MEDS ORDERED: Propofol* 10 MG/ML 20 ML BTL ONE (10:27)
[2018-07-09] MEDS ORDERED: Cisatracurium* 2 MG/ML MDV 5 ML ONE (10:27)
[2018-07-09] MEDS ORDERED: Ondansetron INJ* 2 MG/ML VIAL IV PRN (10:48)
[2018-07-09] MEDS ORDERED: Levalbuterol 0.63MG/3ML NEB* UNIT OF USE INH PRN (10:48)
[2018-07-09] MEDS ORDERED: Acetaminophen TAB* 325 MG PO PRN (10:48)
[2018-07-09] MEDS ORDERED: HYDROcodone/ACETAMIN 5-325 MG* 1 TAB PO PRN ×2 (10:48)
[2018-07-09] MEDS ORDERED: diPHENhydraMINE IV* 50 MG/ML 1 ml VIAL (BENADRYL) IV PRN (10:48)
[2018-07-09] MEDS ORDERED: fentaNYL* 50 MCG/ML 2 ML VIAL (100 MCG VIAL) IV PRN (10:48)
[2018-07-09] MEDS ORDERED: DiMENhydriNATE IV* 50 MG/ML VIAL IV PUSH PRN (10:48)
[2018-07-09] MEDS ORDERED: PROCHLORPERAZINE INJ 5 MG/ML 2 ML VIAL IV PRN (10:48)
[2018-07-09] MEDS ORDERED: Naloxone* 0.4 MG/ML 1 ML VIAL IV PRN (10:48)
[2018-07-09] MEDS ORDERED: Lidocaine 2% PF * 5 ML VIAL ONE (11:19)
--- NOTE | 2018-07-09 11:38 | BRIEFOPN ---
Brief Operative Note - Surgery Procedures: Procedures OPERATIVE REPORT Pre-op: Cholelithiasis, right upper quadrant abdominal pain Post-Op: Same Procedure:Laparoscopic cholecystectomy Surgeon: MD Raciel Asst: Benito Fournier MD Anes: general with local , Dr. Rhoades IVF: 1 liter of crystalloid EBL:min Specimen: Gallbladder Drain: None Wound: 2 To PACU
[2018-07-09 12:59] VITALS: BP 107/71
--- NOTE | 2018-07-09 21:38 | OP ---
DATE OF OPERATION: 07/09/18 - SDS DATE OF : 89 SURGEON: Prabhu Schrader MD GYNECOLOGICAL ASSISTANT: Berhane Fournier MD ANESTHESIOLOGIST: Dr. Rhoades. ANESTHESIA: General with local. PRE-OP DIAGNOSES: Right upper quadrant abdominal pain and cholelithiasis. POST-OP DIAGNOSES: Right upper quadrant abdominal pain and cholelithiasis. OPERATIVE PROCEDURE: Laparoscopic cholecystectomy. WOUND CLASSIFICATION: 2. IV FLUIDS: 1 L of crystalloid. SPECIMEN: Gallbladder. DRAINS: None. COMPLICATIONS: None. DESCRIPTION OF PROCEDURE: Written informed consent was obtained, the abdomen was marked with indelible ink, and preoperative antibiotics were administered. The patient was taken to the operating room and placed in the supine position. Sequential compression devices and a warming blanket were applied. General anesthesia was administered, and the abdomen was prepped and draped in the usual sterile fashion. Time-out verification was completed. A small transverse incision was made just below the umbilicus at the midline and the peritoneal cavity was entered under direct vision. A 12-mm blunt port was inserted and the abdomen was insufflated to 15 mmHg. Under direction vision, a 12-mm epigastric blunt port was placed and two 5-mm ports were placed on the right side of the abdominal wall. Gallbladder was identified. It was Elroy's egg blue color without evidence of acute or chronic inflammation. It was not distended. It was grasped at its top and elevated up over the liver bed. With care, the peritoneum along the medial and lateral aspects of the gallbladder was taken down to expose the cystic duct and artery as they entered the gallbladder. I took a considerable portion of the inferior part of the gallbladder off the liver bed using the critical view technique to assure myself of these structures. The cystic duct was normal and expected caliber. The duct was triply clipped and divided. The cystic artery likewise was clipped and divided. The gallbladder was removed from the liver bed, brought out through the umbilical incision. Hemostasis was assured in the liver bed. All ports were removed under direct vision of the camera. There was no abdominal wall bleeding. The umbilical fascia was closed with interrupted 0 Vicryl suture. The skin at all 4 incisions were approximated with subcuticular 4-0 Vicryl suture. Steri-Strips were applied. The patient tolerated the procedure well, was taken to the recovery room in stable condition. [id number] #: [id number] MTDD
[2018-07-12] MEDS ORDERED: Scopolamine PATCH Remove* 1 NOTE MISC PATCH OFF ONE (10:48)
== END 2018-07-09 13:05 | disposition home or self-care (01) ==
LOC: OR 07:56
PROVIDERS: ATTEND Surgery
DX: K80.10 Calculus of gallbladder with chronic cholecystitis without obstruction (principal); G47.33 Obstructive sleep apnea (adult) (pediatric); J45.909 Unspecified asthma, uncomplicated; Z68.33 Body mass index [BMI] 33.0-33.9, adult; F41.8 Other specified anxiety disorders
CPT/HCPCS: 81025; 88304; A9270-GY; J0690; J1100; J1885; J2250; J2405; J2704; J3010

== ENCOUNTER 2018-12-03 07:12 | Emergency (ER) | payer BC, OTHER ==
--- OUTSIDE RECORDS SUMMARY | 2018-12-03 07:18 | XMS REPORT | Continuity of Care Document ---
:1995 External Reference #:[id number] Author Name Tanisha Martinez MD Address [address] [place] [address] Care Team Providers Name Role Phone Sherita Reeves MD Primary Care Physician Unavailable Payers Date Identification Numbers Payment Provider Subscriber Policy Number: [id number] [facility] BC/BS [facility] Luke Zendejas PayID: [id number] [address] [address] [place] [address] Problems Description No Active Problems Family History Date Family Member(s) Observation Comments Father A&W Mother A&W Children None Siblings 1 First Sister Heart Murmur First Sister Anxiety Paternal Grandfather due to Pulmonary Fibrosis () Paternal Grandfather due to Hypertension () Paternal Grandfather due to Diabetes () Paternal Grandfather due to Stroke () Paternal Grandmother Anxiety Paternal Grandmother Hypertension Maternal Grandfather Pancreatic Cancer Maternal Grandfather Glaucoma Maternal Grandfather due to Pancreatic Cancer () Maternal Grandfather due to Pulmonary Embolus () Maternal Grandfather due to Natural Causes () Maternal Grandmother Breast Cancer dx in 30s Maternal Grandmother Osteoporosis Social History Type Date Description Comments Sex Unknown Education Highest level completed, Nursing degree from Bachelor's Degree [employer] Marital Status Engaged Lives With Fiance 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[employer] [place] Tobacco Use Start: Unknown Never Smoked Cigarettes ETOH Use Denies alcohol use Tobacco Use Start: Unknown Patient has never smoked Recreational Drug Use Denies Drug Use Smoking Status Reviewed: Patient has never smoked 10/12/18 Exercise Type/Frequency Exercises sporadically Seat Belt/Car Seat Always uses seat belt Currently Active Patient is currently sexually active Contraceptive Methods Current methods include levonorgestrel IUD STD's HPV, High Risk Allergies, Adverse Reactions, Alerts Description No Known Drug Allergies Medications Active Medications SIG Qnty Indications Ordering Provider Date Tri-Sprintec take 1 tab by 84tabs Tanisha Martinez MD 10/12/2018 mouth every day 0.18/0.215/0.25 mg-35 mcg Tablets Multivitamin Adult Janell Cortes, 06/11/2015 Tablets Fish Oil Concentrate Janell Cortes, 06/11/2015 300mg Capsules Zoloft 1 po qd 90tabs Unknown 150mg Tablets Zyrtec Allergy 1 po qd 30tabs Unknown 10mg Tablets Lorazepam 1 by mouth twice 60tabs Unknown 0.5mg Tablets a day as needed anxiety Vitamin D-1000 Maximum Unknown Strength Tablets Albuterol Sulfate Unknown (2.5mg/3ML) 0.083% Nebulizer Probiotic 1 po qd Unknown Capsules History Medications Tri-Sprintec 1 by mouth 84tabs Janell Cortes MD 11/29/2013 - 0.18/0.215/0.25 every day 11/18/2014 mg-35 mcg Tablets Ortho-Cyclen 1 po qd 84tabs Debra Gilman, 11/16/2012 - 0.25-35mg-mcg 11/29/2013 Tablets Mirena Unknown - 10/12/2018 Daytime Cough Unknown - 05/11/2016 Medications Administered in Office Medication SIG Qnty Indications Ordering Provider Date PT SCRN Tbco Id as Non User Janell Cortes MD 08/17/2017 Injection Immunizations CPT Code Status Date Vaccine Lot # [id number] Given 02/23/2016 Gardasil Vaccine For HPV [id number] Given 12/03/2014 Gardasil Vaccine For HPV [id number] 05450 Given 12/13/2013 Gardasil Vaccine For HPV [id number] Vital Signs Date Vital Result Comment 10/12/2018 2:48pm BP Systolic 108 mmHg BP Diastolic 74 mmHg Height 63 inches 5'3" Weight 191.00 lb BMI (Body Mass Index) 33.8 kg/m2 0 08/17/2017 8:23am BP Systolic 112 mmHg BP Diastolic 70 mmHg Height 63 inches 5'3" Weight 188.00 lb BMI (Body Mass Index) 33.3 kg/m2 Last Menstrual Period [id number] 0 10/10/2016 8:54am BP Systolic 100 mmHg BP Diastolic 62 mmHg Height 63.5 inches 5'3.50" Weight 193.00 lb BMI (Body Mass Index) 33.6 kg/m2 0 10/10/2016 8:39am Height 63.5 inches 5'3.50" Weight 193.00 lb BMI (Body Mass Index) 33.6 kg/m2 0 09/15/2016 11:08am BP Systolic 112 mmHg BP Diastolic 60 mmHg Height 63.5 inches 5'3.50" Weight 192.00 lb BMI (Body Mass Index) 33.5 kg/m2 0 05/19/2016 3:29pm BP Systolic 108 mmHg BP Diastolic 68 mmHg Height 63.5 inches 5'3.50" Weight 195.00 lb BMI (Body Mass Index) 34.0 kg/m2 0 04/21/2016 7:52am BP Systolic 112 mmHg BP Diastolic 74 mmHg Height 63.5 inches 5'3.50" Weight 194.00 lb BMI (Body Mass Index) 33.8 kg/m2 Last Menstrual Period [phone] 0 Parity 0 03/11/2016 10:56am BP Systolic 112 mmHg BP Diastolic 82 mmHg Height 63.5 inches 5'3.50" Weight 191.00 lb BMI (Body Mass Index) 33.3 kg/m2 Last Menstrual Period [id number] 0 Parity 0 02/23/2016 9:49am BP Systolic 122 mmHg BP Diastolic 70 mmHg Height 63.5 inches 5'3.50" Weight 192.00 lb BMI (Body Mass Index) 33.5 kg/m2 Last Menstrual Period [phone] 0 Parity 0 07/13/2015 2:14pm BP Systolic 134 mmHg BP Diastolic 86 mmHg Height 62.25 inches 5'2.25" Weight 179.00 lb BMI (Body Mass Index) 32.5 kg/m2 Last Menstrual Period [phone] 0 Parity 0 06/11/2015 1:19pm BP Systolic 122 mmHg BP Diastolic 78 mmHg Height 62.25 inches 5'2.25" Weight 176.00 lb BMI (Body Mass Index) 31.9 kg/m2 Last Menstrual Period [phone] 0 Parity 0 01/28/2015 1:28pm BP Systolic 114 mmHg BP Diastolic 64 mmHg Height 62.25 inches 5'2.25" Weight 186.00 lb BMI (Body Mass Index) 33.7 kg/m2 Last Menstrual Period [phone] 0 Parity 0 12/18/2014 1:15pm BP Systolic 126 mmHg BP Diastolic 86 mmHg Height 62.25 inches 5'2.25" Weight 186.00 lb BMI (Body Mass Index) 33.7 kg/m2 Last Menstrual Period 8147238 0 Parity 0 12/03/2014 1:12pm BP Systolic 124 mmHg BP Diastolic 72 mmHg Height 62.25 inches 5'2.25" Weight 188.00 lb BMI (Body Mass Index) 34.1 kg/m2 Last Menstrual Period 3552636 0 Parity 0 11/29/2013 1:13pm BP Systolic 110 mmHg BP Diastolic 60 mmHg Height 62.25 inches 5'2.25" Weight 179.00 lb BMI (Body Mass Index) 32.5 kg/m2 Last Menstrual Period [phone] 0 11/16/2012 1:25pm BP Systolic 118 mmHg BP Diastolic 76 mmHg Height 62.25 inches 5'2.25" Weight 175.00 lb BMI (Body Mass Index) 31.7 kg/m2 Last Menstrual Period 2487703 0 Results Test Date Facility Test Result H/L Range Note Laboratory test [facility] Cytology SEE RESULT 1 finding 8 [place] [address] BELOW [phone] Laboratory test [facility] Surgical SEE RESULT 2 finding 7 [place] [address] Pathology BELOW [phone] Laboratory test [facility] Surgical SEE RESULT 3 finding 6 [place] [address] Pathology BELOW [phone] HIV 1/2 AB [facility] HIV 1 2 Nonreactive N Nonreactive 4 Evaluation 6 [place] [address] Antibody [phone] Laboratory test [facility] Hepatitis C Nonreactive N Nonreactive 5 finding [address] [place] [address] Antibody [phone] Syphillis Igg W/Reflex RPR Nonreactive N Nonreactive 6 Laboratory test 02/23/2016 [facility] Cytology SEE RESULT 7 finding [place] [address] BELOW [phone] GC/Chlamydia 02/23/2016 [facility] Chlamydia Negative [place] [address] trachomatis Rna [phone] Neisseria gonorrhoeae (GC) Rna Negative N Negative Laboratory test 12/18/2014 [facility] Cytology SEE RESULT BELOW 8 finding [place] [address] [phone] Human Papilloma Virus Rna POSITIVE Abnormal Negative 9 Laboratory 12/03/2014 [facility] Prolactin 6.9 ng/mL N 1.0- 25.0 [place] [address] [phone] HIV 1/2 AB 11/29/2013 [facility] HIV 1 2 Nonreactive N Nonreactive 10 [place] [address] Antibody [phone] Hepatitis 11/29/2013 [facility] Hepatitis B Nonreactive [place] [address] Surface [phone] Antigen Hepatitis B Core IgM Nonreactive N Nonreactive Hepatitis A AB IgM Nonreactive N Nonreactive Hepatitis C Antibody Nonreactive N Nonreactive RPR 11/29/2013 [facility] Syphilis IgG Nonreactive N Nonreactive 11 [place] [address] [phone] RPR TNP N Nonreactive RPR Titer TNP N Pediatric/Maternal NO N GC/Chlamydia Dna 11/29/2013 [facility] GC/Chlamydia Rna (SEE NOTE) [address] [place], [place] [address] [phone] 1 SEE RESULT BELOW Name: BOBY MCMULLEN : [address]: Janell Cortes MD Acct: [id number] Unit: [id number] AGE: 22 Location: [facility] Re08/17/17 SEX: F Status: REG REF SPEC: [id number] KEO: 08/17/[address]: Janell Cortes MD REQ: [id number] RECD: 08/17/17 STATUS: SOUT _ ORDERED: TP IMAGE ANALYS, HPV/Thin Prep COMMENTS: [id number] Negative for Intraepithelial lesion or Malignancy A. Ectocervical/Endocervical Specimen Adequacy: Satisfactory of evaluation Transformation zone component identified Patient Information: HPV: High risk HPV RNA testing regardless of pap results. Actual Specimen Date: 08/17/17 Last Menstrual Date: 07/30/17 Date of Last Specimen: 02/23/16 Previous Abnormal Pap Smears?:Y If Yes, enter Diagnosis: High grade squamous intraepithelial lesion. Date Time Test Result Flag (u) Normal Range 08/17/17 0918 @ HPV RNA Negative Negative @ @ The high-risk HPV types detected by the assay include: 16, @ 18, 31, 33, 35, 39, 45, 51, 52, 56, 58, 59, 66, and 68. Signed by and Reported on: DanaeMAUREEN Eason(ASC) 1157 This Pap test was evaluated with the assistance of the MobileOCTPrep Test Imaging System. Due to cytologic findings at the head of digital microscope, comprehensive manual rescreening by a Maintenance Data Analyst may be required. The Pap Smear is a screening test designed to aid in the detection of premalignant and malignant conditions of the uterine cervix. It is not a diagnostic procedure and should not be used as the sole means of detecting cervical cancer. Both false- positive and false- negative reports do occur. Depending on your risk status, a Pap smear should be obtained and evaluated every 1-3 years. END OF REPORT DEPARTMENT OF PATHOLOGY, [address] [place] [address] Ramesh Larry M.D. Director [facility] # [id number] 2 SEE RESULT BELOW Name: BOBY MCMULLEN : [address]: Janell Cortes MD Acct: [id number] Unit: [id number] AGE: 20 Location: [facility] Re04/21/16 SEX: F Status: REG REF SPEC: [id number] KEO: 04/21/16-[address] [facility] [address]: Janell Cortes MD REQ: [id number] RECD: 04/21/16 STATUS: SOUT _ ORDERED: LEVEL V COMMENTS: [id number] FINAL DIAGNOSIS Uterus, cervix, LEEP excision: -- High-grade squamous intraepithelial lesion (severe dysplasia, KINDRA III) with gland neck extension. -- No evidence of invasion identified. -- Cauterized and inked margins of resection are free of dysplasia. PRE-OPERATIVE DIAGNOSIS High grade squamous intraepithelial lesion GROSS DESCRIPTION The specimen is received in formalin labeled, Cervical Biopsy by LEEP, and consists of a 1.6 x 1.0 cm newsome-pink ovoid focally cauterized soft tissue fragment excised to a maximum depth of 0.6 cm. The specimen is consistent with an unoriented cervical LEEP biopsy. The ectocervix is smooth newsome-pink and appears scant with a central 0.5 x 0.3 cm os and the endocervix is mucinous newsome-pink. The specimen is inked as follows: ectocervical margin-black and endocervical margin-blue, serially sectioned in a radial fashion and entirely submitted in cassettes A through D. Signed (signature on file) Ramesh Larry MD 1433 END OF REPORT * ML = Testing performed at Main Lab DEPARTMENT OF PATHOLOGY, [address] [place] [address] Ramesh Larry M.D. Director [facility] # [id number] 3 SEE RESULT BELOW Name: BOBY MCMULLEN : [address]: Janell Cortes MD Acct: [id number] Unit: [id number] AGE: 20 Location: [facility] Re03/11/16 SEX: F Status: REG REF SPEC: [id number] KEO: 03/11/16-[address] [facility] [address]: Janell Cortes MD REQ: [id number] RECD: 03/11/167535 STATUS: SOUT _ ORDERED: LEVEL IV/3 COMMENTS: [id number] FINAL DIAGNOSIS 1. Uterus, cervix, 12:00, biopsy: -- High-grade squamous intraepithelial lesion (severe dysplasia, KINDRA III) involving endocervical gland necks. 2. Uterus, cervix, 2:00, biopsy: -- High-grade squamous intraepithelial lesion (severe dysplasia, KINDRA III). 3. Uterus, endocervix, curettage: -- Benign endocervical glandular epithelium and mucus. -- No dysplasia identified. PRE-OPERATIVE DIAGNOSIS High grade squamous intraepithelial lesion GROSS DESCRIPTION 1. The specimen is received in formalin labeled, Cervical Biopsy 12:00, and consists of a 0.4 x 0.3 x 0.2 cm speckled newsome-brown irregular to rubbery tissue fragment which is filtered and entirely submitted in one cassette. 2. The specimen is received in formalin labeled, Cervical Biopsy 2:00, and consists of a 0.4 x 0.3 x 0.1 cm white rubbery to soft tissue fragment, which is filtered and entirely submitted in one cassette. 3. The specimen is received in formalin labeled, ECC, and consists of a 1.5 x 1.0 x 0.3 cm aggregate of translucent mucus with red-brown two white-pink inclusions. The specimen is filtered and entirely submitted in one cassette. CONTINUED ON NEXT PAGE * ML = Testing performed at Main Lab DEPARTMENT OF PATHOLOGY, [address] [place] [address] Ramesh Larry M.D. Director [facility] # [id number] RUN DATE: 03/15/16 [facility] LAB LIVE PAGE 2 Patient: MCMULLENBOBY [id number] (Continued) GROSS DESCRIPTION (Continued) Signed (signature on file) Ramesh Larry MD 1059 END OF REPORT * ML = Testing performed at Main Lab DEPARTMENT OF PATHOLOGY, [address] [place] [address] Ramesh Larry M.D. Director [facility] # [id number] 4 It is recognized that currently available assays for the detection of antibodies to HIV-1 and/or HIV-2 may not detect all infected individuals. HIV antibodies may be undetectable in some stages of the infection and in some clinical conditions. The performance of this assay has not been established for populations of infants or children. Assayed by Chemiluminescence Microparticle Immunoassay on the Siemens Advia Centaur CP. Values obtained with different methods or kits cannot be used interchangeably.The diagnostic specificity of the ADVIA Centaur 1/O/2 Enhanced assay in the low risk population was 99.90% (6052/6058) with a 95% confidence interval of 99.78 to 99.96%. 5 [id number] Warning: A positive result is not useful for establishing a diagnosis of syphilis. In most situations, such a result may reflect a prior treated infection; a negative result can exclude a diagnosis of syphilis except for incubating or early primary disease. 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 A. Ectocervical/Endocervical Specimen Adequacy: Satisfactory of evaluation Transformation zone component identified Patient Information: HPV: Thin Layer Pap Test w/reflex to high risk HPV RNA testing when ASCUS Actual Specimen Date: 02/23/16 Last Menstrual Date: 01/26/16 Date of Last Specimen: 12/18/14 Previous Abnormal Pap Smears?:Y If Yes, enter Diagnosis: Atypical Squamous cells of uncertain significance. +HPV Signed (signature on file) Ramesh Larry MD 4087 This Pap test was evaluated with the assistance of the MobileOCTPrep Test Imaging System. Due to cytologic findings at the head of digital microscope, comprehensive manual rescreening by a Maintenance Data Analyst may be required. The Pap Smear is a screening test designed to aid in the detection of premalignant and malignant conditions of the uterine cervix. It is not a diagnostic procedure and should not be used as the sole means of detecting cervical cancer. Both false- positive and false- negative reports do occur. Depending on your risk status, a Pap smear should be obtained and evaluated every 1-3 years. END OF REPORT * ML = Testing performed at Main Lab DEPARTMENT OF PATHOLOGY, [address] [place] [address] Ramesh Larry M.D. Director [facility] # [id number] 8 SEE RESULT BELOW Name: BOBY MCMULLEN : [address]: Janell Cortes MD Acct: [id number] Unit: [id number] AGE: 19 Location: [facility] Re12/18/14 SEX: F Status: REG REF SPEC: [id number] KEO: 12/18/141328 [facility] DR: Janell Cortes MD REQ: [id number] RECD: 12/18/141622 STATUS: SOUT _ ORDERED: IMAGE ANALYSIS, PAP SM PATH REV, HPV/Thin Prep FINAL DIAGNOSIS EPITHELIAL CELL ABNORMALITIES Atypical squamous cells of undetermined significance A. Ectocervical/Endocervical Specimen Adequacy: Satisfactory of evaluation Transformation zone component identified Patient Information: HPV: High risk HPV RNA testing regardless of pap results. Actual Specimen Date: 12/18/14 Last Menstrual Date: 12/02/14 Spec Date if unknown: never Date Time Test Result Flag (u) Normal Range 12/18/14 1328 HPV RNA POSITIVE H Negative The high-risk HPV types detected by the assay include: 16, 18, 31, 33, 35, 39, 45, 51, 52, 56, 58, 59, 66, and 68. Signed (signature on file) Elva Sesay MD 11/25 3960 This Pap test was evaluated with the assistance of the [employer] Test Imaging System. Due to cytologic findings at the head of digital microscope, comprehensive manual rescreening by a Maintenance Data Analyst may be required. The Pap Smear is a screening test designed to aid in the detection of premalignant and malignant conditions of the uterine cervix. It is not a diagnostic procedure and should not be used as the sole means of detecting cervical cancer. Both false- positive and false- negative reports do occur. Depending on your risk status, a Pap smear should be obtained and evaluated every 1-3 years. END OF REPORT * ML = Testing performed at Main Lab DEPARTMENT OF PATHOLOGY, [address], [place], [place] [address] Ramesh Larry M.D. Director [facility] # [id number] 9 The high-risk HPV types detected by the assay include: 16, 18, 31, 33, 35, 39, 45, 51, 52, 56, 58, 59, 66, and 68. 10 It is recognized that currently available assays for the detection of antibodies to HIV-1 and/or HIV-2 may not detect all infected individuals. HIV antibodies may be undetectable in some stages of the infection and in some clinical conditions. The performance of this assay has not been established for populations of infants or children. Assayed by Chemiluminescence Microparticle Immunoassay on the Siemens Advia Centaur CP. Values obtained with different methods or kits cannot be used interchangeably.The diagnostic specificity of the ADVIA Centaur 1/O/2 Enhanced assay in the low risk population was 99.90% (6052/6058) with a 95% confidence interval of 99.78 to 99.96%. 11 Warning: A positive result is not useful for establishing a diagnosis of syphilis. In most situations, such a result may reflect a prior treated infection; a negative result can exclude a diagnosis of syphilis except for incubating or early primary disease. 12 RUN DATE: 12/03/13 [facility] LAB LIVE PAGE 1 RUN TIME: [address] [place] [address] Specimen Inquiry Name: BOBY MCMULLEN : [address]: Trisha Gonzalez NP Acct: [id number] Unit: [id number] AGE: 18 Location: [facility] Re11/29/13 SEX: F Status: REG REF SPEC: [id number] KEO: 11/29/13-[address]: Trisha Gonzalez NP REQ: [id number] RECD: 12/02/13 STATUS: COMP _ SOURCE: ENDOCERVIX SPDESC: ORDERED: GC/Chlam RNA QUERIES: Medent Number [id number] Procedure Result Verified Site Chlamydia Trachomatis RNA Final 12/03/13- 1406 ML NEGATIVE for Chlamydia trachomatis rRNA GC (N. gonorrhoeae) RNA Final 12/03/13- 1406 ML NEGATIVE for Neisseria gonorrhoeae rRNA A negative result does not preclude the presence of a C. trachomatis or N. gonorrhoeae infection because results are dependent on adequate specimen collection, absence of inhibitors, and sufficient rRNA to be detected. Test results may be affected by improper specimen collection, improper storage, technical error, or specimen mixup. Limitations of the Procedure: The Aptima Combo 2 Assay is not intended for the evaluation of suspected sexual abuse or for other medico-legal indications. For those patients for whom a false positive result may have adverse psychosocial impact, the CDC recommends retesting by a method using an alternate technology. Therapeutic failure or success cannot be determined with the Aptima Combo 2 Assay since nucleic acid may persist following appropriate antimicrobial therapy. Results from the Aptima Combo 2 Assay should be interpreted in conjunction with other laboratory and clinical data available to the clinican. CONTINUED ON NEXT PAGE * ML = Testing performed at Main Lab DEPARTMENT OF PATHOLOGY, [facility] [employer] [place] [address] Ramesh Larry M.D. Director [facility] # [id number] RUN DATE: 12/03/13 [facility] LAB LIVE PAGE 2 RUN TIME: 1406 [facility] [employer] [place], [place] [address] Specimen Inquiry Patient: BOBY MCMULLEN [id number] (Continued) Specimen: [id number] Collected: 11/29/13-904 Received: 12/02/13-1145 (Continued) Procedure Result Verified Site GC (N. gonorrhoeae) RNA Final (continued) 12/03/13- 1406 Performance characteristics for detecting C. trachomatis and N. gonorrhoeae are derived from high prevalence populations. Positive results in low prevalence populations should be interpreted carefully with the understanding that the likelihood of a false positive may be higher than a true positive. END OF REPORT * ML = Testing performed at Main Lab DEPARTMENT OF PATHOLOGY, [address] [place] [address] Ramesh Larry M.D. Director [facility] # [id number] Procedures Date Code Description Status 10/12/2018 25713 Remove Intrauterine Device Completed 10/10/2016 90269 Echography Transvaginal Completed 04/21/2016 55549 Colposcopy W/Loop Electrode Conization Of The Cervix Completed 03/11/2016 22620 Colposcopy W/Biopsy Cervix/Endocervical Curettage Completed 07/13/2015 03983 Echography Transvaginal Completed 12/18/2014 29434 Insert Intrauterine Device Completed 12/18/2014 60826 Insert Intrauterine Device Completed Encounters Type Date Location Provider Dx Diagnosis Office Visit 08/17/2017 [facility] Janell Cortes, Z01.419 Encntr for sports trainer exam 8:30a (general) (routine) w/o abn findings Z87.410 Personal history of cervical dysplasia Office Visit 10/10/2016 9:00a [facility] Galina Minor, N92.6 Irregular ANP-C menstruation, unspecified Office Visit 09/15/2016 11:20a [facility] Galina Minor, R10.30 Lower abdominal ANP-C pain, unspecified Office Visit 04/21/2016 8:00a [facility] [place] N87.1 Moderate cervical MD Janell dysplasia Office Visit 02/23/2016 10:00a [facility] Sbeastian Z01.411 Encntr for sports trainer exam MD Janell (general) (routine) w abnormal findings N92.5 Other specified irregular menstruation Z01.812 Encounter for preprocedural laboratory examination Z23 Encounter for immunization Office Visit 07/13/2015 2:30p [facility] Janell Cortes MD R10.2 Pelvic and perineal pain N92.0 Excessive and frequent menstruation with regular cycle Office Visit 06/11/2015 1:30p [facility] Office Janell Cortes, N92.0 Excessive and frequent menstruation with regular cycle R10.2 Pelvic and perineal pain Office Visit 01/28/2015 1:30p [facility] Office Janell Cortes, Z30.431 Encounter for routine checking of intrauterine contracep dev Office Visit 12/03/2014 1:30p [facility] Trisha Gonzalez NP Z23 Encounter for immunization Z12.4 Encounter for screening for malignant neoplasm of cervix Z01.419 Encntr for sports trainer exam (general) (routine) w/o abn findings Z30.9 Encounter for contraceptive management, unspecified N64.52 Nipple discharge Office Visit 11/29/2013 1:30p [facility] Trisha Gonzalez V72.31 Routine Case Coordinator MATERIAL EXPEDITER Examination V74.5 Screening Examination Venereal Disease V25.41 Contraceptive Pill Surveillance 789.9 Abdomen & Pelvis Symptoms Other V76.2 Screening Malignant Neoplasm Cervix Office Visit 11/16/2012 1:30p [facility] Trisha Gonzalez V72.31 Routine Case Coordinator MATERIAL EXPEDITER Examination V25.8 Contraceptive Management Spec Other V76.2 Screening Malignant Neoplasm Cervix Plan of Treatment Future Appointment(s):12/04/2018 3:00 pm - Janell Cortes MD at [id number] - Janell Cortes, Z01.419 Encounter for gynecological examination ( general) (routine) without abnormal findingsComments:Maintain routine exercise and healthy diet. Try to get adequate sleep at night to improve your overall health (most people need >8 hours!)Perform periodic breast exams at various times of the month to become familiar with your breast tissue so you don't have to worry about your normal lumps and bunps and are more likely to notice something abnormal. Return for annual exam in 1 year or as needed ifconcerns arise.Z87.410 Personal history of cervical dysplasiaComments:Repeat pap was done today. You will be called with abnormal results to schedule a colposcopy or receive normal results in the mail or via the patient portal.
[2018-12-03 07:20] VITALS: BP 135/79
--- NOTE | 2018-12-03 07:59 | UC ---
Abdominal Pain Female HPI - HPI Summary HPI Summary: Patient presents to urgent care concerned she has a UTI. Patient states during on Monday evening she started to develop symptoms. Patient states burning, frequency, urgency. Patient states yesterday she took some Azo that helped mildly x1 last evening. No fevers or chills. No nausea vomiting. Patient with mild lower abdominal fullness of started today. Patient denies any vaginal discharge, itching, odor. Patient states she is not . Patient with her last UTI approximately 3 years ago. Patient states she was up frequently during the night because she had a urinary. Patient denies any concerns for sexual transmitted infections. Patient's medications reviewed this visit. - History of Current Complaint Chief Complaint: UCGU Stated Complaint: URINARY ISSUE Time Seen by Provider: 12/03/18 07:40 Hx Obtained From: Patient Hx Last Menstrual Period: 11/25/18 Onset/Duration: Gradual Onset Severity Initially: Mild Severity Currently: Mild Pain Intensity: 2 Allergies/Adverse Reactions: Allergies Allergy/AdvReac Type Severity Reaction Status Date / Time pineapple Allergy Severe Itching Verified 12/03/18 07:21 cats Allergy Severe Eyes Uncoded 12/03/18 07:21 Itchy/Swollen/Red/Watery PMH/Surg Hx/FS Hx/Imm Hx Previously Healthy: Yes - Surgical History Surgical History: Yes Surgery Procedure, Year, and Place: tonsils 02/20, adenoids in 04/19, wisdom teeth 02/21 - Family History Known Family History: Positive: Cardiac Disease, Hypertension, Diabetes - Social History 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 Negative: Vaginal/Penile Burning, Vaginal/Penile Itching, Vaginal/Penile Discharge, Vaginal/Penile Pain, Vaginal/Penile Tenderness Motor: Positive: Negative Is Patient Immunocompromised?: No Physical Exam - Summary Physical Exam Summary: Vital Signs Reviewed: Yes A+Ox3, no distress Eyes: Conjunctiva Clear, MARCELA. EOM intact and full ENT: Hearing grossly normal TM x 2 clear, mmoist, uvula midline, no exudate, no erythema Neck: Positive: Supple Respiratory: Positive: No respiratory distress, No accessory muscle use + CTA throughout no w/r Cardiovascular: RRR nl s1, s2 no m/r CBT <2 sec abd soft + BS nd, mild suprapubic discomfort with direct palp- no guarding, no distension, no CVA Musculoskeletal Exam: IQBAL x 4 without difficulty Strength Intact, ROM Intact Neurological: Positive: Alert, + sensation throughout Psychological: Positive: Normal Response To examiner Skin: Positive: no rash, no ecchymosis Triage Information Reviewed: Yes Vital Signs: Initial Vital Signs Temp 99.4 F 12/03/18 07:17 Pulse 110 12/03/18 07:17 Resp 18 12/03/18 07:17 BP 135/79 12/03/18 07:17 Pulse Ox 99 12/03/18 07:17 Abd Pain Female Course/Dx - Course Course Of Treatment: Pt presents with progressive urinary frequency, urgency, and discomfort since Sat. Pt took Azo x 1 with mild improvement. no motrin/apap. Patient denies vaginal itching or discharge. Patient has back pain. No fevers. No nausea. On exam vital signs are stable. Patient with some mild suprapubic tenderness but otherwise not concerning exam. Patient's urine consistent with UTI however should take Azo last night. This was more than 12 hours ago. We'll culture urine. We'll start Macrobid. We'll prescribe prescription Pyridium. Strict return precautions. Patient comfortable in agreement with plan. - Differential Dx/Diagnosis Provider Diagnosis: UTI (urinary tract infection) Discharge ED - Sign-Out/Discharge Documenting (check all that apply): Patient Departure All imaging exams completed and their final reports reviewed: No Studies - Discharge Plan Condition: Stable Disposition: HOME Prescriptions: Nitrofurantoin Monohyd/M-Cryst [Macrobid 100 mg Capsule] 100 mg PO BID #14 cap Phenazopyridine TAB* [Pyridium 100 mg TAB*] 100 mg PO TID PRN #10 tab PRN Reason: burning with urination Patient Education Materials: Urinary Tract Infection in Women (ED) Referrals: Sherita Reeves MD [Primary Care Provider] - Additional Instructions: - stay well hydrated - drink plenty of non-alcoholic, non caffinated beverages - your urine will be further tested - if you require any changes to your treatment, we will contact you - this usually take 2 days - Contact your primary doctor to arrange a follow-up appointment next week. Contact your doctor or return with questions or concerns - Take your antibiotics exactly as prescribed until gone - Take pyridium as prescribed for discomfort. This will make your urine blaze orange - this is normal - Okay to alternate ibuprofen (Advil, Motrin) and Tylenol every 3 hours for pain. Take with food - Call your doctor or return with questions or concerns - Billing Disposition and Condition Condition: STABLE Disposition: Home
--- NOTE | 2018-12-05 17:39 | UC ---
- Progress Note Progress Note: + E. Coli on Macrobid - sensitive no change jama 12/05/18 Course/Dx - Diagnoses Provider Diagnoses: UTI (urinary tract infection) Discharge ED - Sign-Out/Discharge Documenting (check all that apply): Post-Discharge Follow Up All imaging exams completed and their final reports reviewed: No Studies - Discharge Plan Condition: Stable Disposition: HOME Prescriptions: Nitrofurantoin Monohyd/M-Cryst [Macrobid 100 mg Capsule] 100 mg PO BID #14 cap Phenazopyridine TAB* [Pyridium 100 mg TAB*] 100 mg PO TID PRN #10 tab PRN Reason: burning with urination Patient Education Materials: Urinary Tract Infection in Women (ED) Referrals: Sherita Reeves MD [Primary Care Provider] - Additional Instructions: - stay well hydrated - drink plenty of non-alcoholic, non caffinated beverages - your urine will be further tested - if you require any changes to your treatment, we will contact you - this usually take 2 days - Contact your primary doctor to arrange a follow-up appointment next week. Contact your doctor or return with questions or concerns - Take your antibiotics exactly as prescribed until gone - Take pyridium as prescribed for discomfort. This will make your urine blaze orange - this is normal - Okay to alternate ibuprofen (Advil, Motrin) and Tylenol every 3 hours for pain. Take with food - Call your doctor or return with questions or concerns - Billing Disposition and Condition Condition: STABLE Disposition: Home
== END 2018-12-03 08:01 | disposition home or self-care (01) ==
LOC: UCEAST 07:12
DX: N39.0 Urinary tract infection, site not specified (principal)
CPT/HCPCS: 81003; 87077; 87086; 87186; 99212; G0463

== ENCOUNTER 2019-02-22 07:24 | Emergency (ER) | payer OTHER, BC ==
[2019-02-22 07:38] VITALS: BP 120/71
--- NOTE | 2019-02-22 08:07 | UC ---
Complaint Female HPI - HPI Summary HPI Summary: Ms. Wagner has had urinary frequency and urgency for two days. She denies back pain or fever. She took an [id number] Pyridium for her symptoms. She had urinary tract infection in November and was treated with Macrobid. - History Of Current Complaint Chief Complaint: UCGU Stated Complaint: URINARY ISSUE Time Seen by Provider: 02/22/19 07:47 Hx Obtained From: Patient Hx Last Menstrual Period: three weeks ago Onset/Duration: Gradual Onset, Lasting Days Timing: Constant Severity Initially: Mild Severity Currently: Mild Pain Intensity: 1 Character: Burning Aggravating Factor(s): Nothing Alleviating Factor(s): Nothing Associated Signs And Symptoms: Positive: Negative - Allergies/Home Medications Allergies/Adverse Reactions: Allergies Allergy/AdvReac Type Severity Reaction Status Date / Time pineapple Allergy Severe Itching Verified 02/22/19 07:38 cats Allergy Severe Eyes Uncoded 02/22/19 07:38 Itchy/Swollen/Red/Watery Home Medications: Home Medications Norgestimate-Eth Estradiol(NF) [Ortho Tri-Cyclen (NF)] 1 tab PO QPM 02/22/19 [ History Confirmed 02/22/19] PMH/Surg Hx/FS Hx/Imm Hx Previously Healthy: Yes - Surgical History Surgical History: Yes Surgery Procedure, Year, and Place: tonsils 02/20, adenoids in 04/19, wisdom teeth 02/21. cholecystectomy - Family History Known Family History: Positive: Cardiac Disease, Hypertension, Diabetes - Social History Alcohol Use: Rare Substance Use Type: None Smoking Status (MU): Never Smoked Tobacco - Immunization History Most Recent Influenza Vaccination: 2015 Most Recent Tetanus Shot: UTD Most Recent Pneumonia Vaccination: N/A Review of Systems All Other Systems Reviewed And Are Negative: Yes Constitutional: Positive: Negative Genitourinary: Positive: Dysuria, Frequency, Urgency Physical Exam - Summary Physical Exam Summary: She is nontoxic in appearance with stable vital signs Triage Information Reviewed: Yes Appearance: Well-Appearing Vital Signs: Initial Vital Signs Temp 98.4 F 02/22/19 07:33 Pulse 96 02/22/19 07:33 Resp 18 02/22/19 07:33 BP 120/71 02/22/19 07:33 Pulse Ox 98 02/22/19 07:33 Abdominal Exam: Normal Musculoskeletal Exam: Normal - No CVA tenderness Complaint Female Dx - Course Course Of Treatment: We can run a UA here because she is taking Pyridium. I will treat her based on her history with Macrobid and we are sending her urine for culture. - Differential Dx/Diagnosis Provider Diagnosis: UTI (urinary tract infection) Discharge ED - Sign-Out/Discharge Documenting (check all that apply): Patient Departure All imaging exams completed and their final reports reviewed: No Studies - Discharge Plan Condition: Stable Disposition: HOME Patient Education Materials: Urinary Tract Infection in Women (ED) Referrals: Sherita Reeves MD [Primary Care Provider] - - Billing Disposition and Condition Condition: STABLE Disposition: Home
== END 2019-02-22 08:20 | disposition home or self-care (01) ==
LOC: UCEAST 07:24
DX: N39.0 Urinary tract infection, site not specified (principal); Z91.018 Allergy to other foods; Z91.09 Other allergy status, other than to drugs and biological substances
CPT/HCPCS: 84702; 87077; 87086; 87186; 99212; G0463